=== PATIENT | male | born 1970 | race Caucasian/White ===

== ENCOUNTER 2019-01-17 21:20 | Emergency (ER) | payer OTHER ==
[~2019-01-17] VITALS: Ht 190.5 cm; Wt 163.3 kg
[~2019-01-17 21:20] MED LIST: AMOXICILLIN 50500 MG PO; AMOXICILLIN500 M1 PO; AMOXICILLIN875 MG PO; BACTRIM DS TAB1 EACH PO; FLEXERIL PO; FLOXIN OTI0.3 %/5 M1 OT; FLOXIN OTI0.3 %/5 ML OTIC; HYDROCODON-ACE1 EAC7 PO; HYDROCODONE-AP1 EAC6 PO; IBUPROFEN 800800 M1 PO; IBUPROFEN 800800 MG PO; KEFLEX500 MG PO; MEDROLDOSEPACK PO; MUPIROCIN22 GM TOP; NAPROSYN500 MG PO; NOHOMEMEDICATIONS; NORCO 5-325 TA1 EACH PO; NORFLEX100 MG PO; PENICILLIN VK250 MG PO; PENICILLIN VK500 M1 PO; PERCOCET 5-3251 EACH PO; TRAMADOL 50 MG50 MG PO; ULTRAM 50MG TAB50 MG PO; [UNRECOGNIZED DRUG - REMARK]
[2019-01-17] MEDS ORDERED: PERCOCET 7.5-31 EACH PO (23:47)
[2019-01-17] MEDS ORDERED: IBUPROFEN 800800 MG PO (23:47)
[2019-01-17 23:53] VITALS: BP 160/80
== END 2019-01-17 23:54 | disposition home or self-care (01) ==
LOC: M.ERS 21:20
DX: S83.8X2A Sprain of other specified parts of left knee, initial encounter (principal); S80.812A Abrasion, left lower leg, initial encounter; W10.9XXA Fall (on) (from) unspecified stairs and steps, initial encounter; Y92.89 Other specified places as the place of occurrence of the external cause; Y93.89 Activity, other specified; Y99.8 Other external cause status